=== PATIENT | female | born 1975 | race African-American/Black ===

== ENCOUNTER 2019-11-07 16:41 | Emergency (ER) | payer SELFPAY | END 2019-11-07 17:38 | disposition home or self-care (01) | LOC: NAV ERS 16:41 | DX: H53.8 Other visual disturbances (principal); F41.9 Anxiety disorder, unspecified | CPT/HCPCS: 99284 ==

== ENCOUNTER 2020-12-04 13:15 | Emergency (ER) | payer SELFPAY ==
[2020-12-04] MEDS ORDERED: Ketorolac Tromethamine 60 MG/2 ML VIAL ONE (14:51)
== END 2020-12-04 15:08 | disposition home or self-care (01) ==
LOC: NAV ERS 13:15
DX: K02.9 Dental caries, unspecified (principal); I10 Essential (primary) hypertension; E11.9 Type 2 diabetes mellitus without complications; E78.5 Hyperlipidemia, unspecified; Z79.84 Long term (current) use of oral hypoglycemic drugs; Z79.899 Other long term (current) drug therapy
CPT/HCPCS: 99282; J1885

== ENCOUNTER 2021-03-10 10:51 | Emergency (ER) | payer SELFPAY ==
[2021-03-10] MEDS ORDERED: Amoxicillin/Potassium Clav 875 MG TAB ONE (11:25)
[2021-03-10] MEDS ORDERED: Ketorolac Tromethamine 60 MG/2 ML VIAL ONE (11:25)
== END 2021-03-10 11:45 | disposition home or self-care (01) ==
LOC: NAV ERS 10:51
DX: K04.7 Periapical abscess without sinus (principal); E11.9 Type 2 diabetes mellitus without complications; E78.5 Hyperlipidemia, unspecified; I10 Essential (primary) hypertension; Z79.84 Long term (current) use of oral hypoglycemic drugs; Z79.899 Other long term (current) drug therapy
CPT/HCPCS: 96372; 99283; J1885